=== PATIENT | female | born 1970 | race Caucasian/White ===

== ENCOUNTER 2022-07-12 19:25 | Emergency (ER) | payer SELFPAY ==
[~2022-07-12] VITALS: Ht 157.5 cm; Wt 61.8 kg
[2022-07-12 21:13] LABS: BASOPHILS % 0.2 % (0.0-2.0); EOSINOPHILS % 0.3 % (0.0-5.0); HEMATOCRIT. 38.4 % (36.0-48.0); HEMOGLOBIN. 13.2 g/dL (12.0-16.0); LYMPHOCYTES % 8.7 % (20.0-50.0); MEAN CORPUSCULAR HEMOGLOBIN 31.4 pg (28.0-32.0); MEAN CORPUSCULAR VOLUME 91.5 fL (81.0-99.0); MEAN PLATELET VOLUME 9.3 fl (7.4-10.4); NEUTROPHILS % 88.8 % (40.0-76.0); PLATELET 181 x1000/uL (130-400); RED CELL DISTRIBUTION WIDTH 13.4 % (11.6-14.6)
[2022-07-12 21:17] LABS: CHLORIDE 106 mEq/L (98-107)
[2022-07-12 21:24] LABS: INR 1.1; PARTIAL THROMBOPLASTIN TIME 24.5 sec (23.4-31.0); PROTHROMBIN TIME 11.6 sec (9.6-11.0)
[2022-07-12 22:07] VITALS: BP 126/79
[2022-07-12] MEDS ORDERED: ONDANSETRON 4MG ODT PO ONE (23:00)
[2022-07-12] MEDS ORDERED: ACETAMINOPHEN 325MG TABLET PO ONE (23:00)
[2022-07-12 23:24] LABS: CLARITY URINE CLEAR (CLEAR); COLOR URINE YELLOW (YELLOW); KETONES URINE TRACE (NEGATIVE); LEUKOCYTE ESTERASE URINE TRACE (NEGATIVE); NITRITE URINE NEGATIVE (NEGATIVE); OCCULT BLOOD URINE NEGATIVE (NEGATIVE); PH URINE 7.5 (4.5-8.0); PROTEIN URINE NEGATIVE (NEGATIVE); SPECIFIC GRAVITY URINE 1.009 (1.005-1.030); UROBILINOGEN URINE 0.2 E.U./dL (0.2-1.0)
== END 2022-07-13 01:35 | disposition home or self-care (01) ==
LOC: ER 19:25
DX: R07.89 Other chest pain (principal); R51.9 Headache, unspecified; R11.0 Nausea; Z90.710 Acquired absence of both cervix and uterus
CPT/HCPCS: 36415; 71045; 80053; 81003; 81025; 84484; 85025; 85610; 85730; 93005; 99285; Q0162